=== PATIENT | male | born 1990 ===

== ENCOUNTER 2024-02-07 23:41 | Emergency (ER) | payer SELFPAY ==
[2024-02-07] MEDS ORDERED: Ketamine HCl 50 MG/ML IV ONE (23:42)
[2024-02-07] MEDS ORDERED: Zemuron 100 MG/10 ML IV ONE (23:42)
[2024-02-07] MEDS ORDERED: Sodium Chloride 0.9% 1000 ML 2,000 ML ONE (23:43)
[2024-02-07] MEDS ORDERED: FENTANYL 500 MCG/10 ML VIAL IV ONE (23:49)
[2024-02-07] MEDS ORDERED: Sodium Chloride 0.9% 150 ML 150 ML IV ONE (23:49)
[2024-02-07] MEDS ORDERED: Propofol 1000 mg/100 ml Bottle 100 ML IV ONE (23:54)
[2024-02-07] MEDS ORDERED: Sodium Chloride 0.9% 500 ML 500 ML IV ONE (23:55)
[2024-02-07] MEDS ORDERED: Sodium Chloride 0.9% 1000 ML 1,000 ML IV STA (23:57)
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
[2024-02-08 00:21] VITALS: TEMP 102.2
[2024-02-08 00:37] LABS: Absolute Neutrophil Ct (ANC) 13.67 x10^3/uL (1.4-6.9); BASOPHIL % 0.2 % (0.0-0.4); Basophil (Absolute #) 0.04 x10^3/uL (0-0.4); Eosinophil % 0.1 % (0.00-5.0); Eosinophil (Absolute #) 0.01 x10^3/uL (0-0.5); Hematocrit 47.3 % (42-50); IMMATURE GRAN # 0.08 x10^3u/L (0.00-0.03); IMMATURE GRAN % 0.5 % (0.00-0.4); Lymphocytes % 8.8 % (24.0-44.0); Mean Cell Volume 94.2 fL (78-100); Mean Corpuscular Hemoglobin 31.9 pg (26-32); Mean Corpuscular Hgb Concent. 33.8 g/dL (32-36); Mean Platelet Volume 11.1 fL (7.5-11.0); Monocyte (Absolute #) 1.77 x10^3/uL (0.0-1.3); Monocytes % 10.4 % (0.0-12.0); Platelet Count 257 x10^3/uL (150-450); Red Blood Count 5.02 x10^6/uL (4.1-5.6); Red Cell Distribution Width 14.5 % (11.5-14.0); White Blood Count 17.1 x10^3/uL (4.0-10.5)
[2024-02-08 00:53] LABS: ALKALINE PHOSPHATASE 85 U/L (38-126); ANION GAP 31.2 MEQ/L (5-15); BLOOD UREA NITROGEN 24 mg/dL (9-20); CHLORIDE 108 mmol/L (98-107); Calcium 10.3 mg/dL (8.4-10.2); EST GLOMERULAR FILTRATION RATE 35.2 ML/MIN; ETHYL ALCOHOL < 10 mg/dL (0-10); Glucose 61 mg/dL (74-106); Potassium 4.1 mmol/L (3.5-5.1); SGOT/AST 72 U/L (17-59); SGPT/ALT 82 U/L (0-50); SODIUM 144 mmol/L (135-145); Total Protein 8.6 g/dL (6.3-8.2)
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
[2024-02-08 00:57] LABS: Carbon Dioxide 9 mmol/L (22-30)
[2024-02-08 01:03] LABS: Barbiturate,Urine NEGATIVE (NEGATIVE); Benzodiazepine,Urine NEGATIVE (NEGATIVE); Cocaine,Urine NEGATIVE (NEGATIVE); Methadone,Urine NEGATIVE (NEGATIVE); Opiate,Urine NEGATIVE (NEGATIVE); PCP,Urine NEGATIVE (NEGATIVE); THC,Urine POSITIVE (NEGATIVE)
[2024-02-08 01:04] VITALS: RESP 18
[2024-02-08 01:07] VITALS: BP 147/91; PULSE 144
[2024-02-08 01:56] VITALS: O2SAT 95
[2024-02-08 02:13] LABS: ABO TYPING A
[2024-02-08 02:14] LABS: Antibody Screen NEGATIVE (NEGATIVE); RH TYPING POSITIVE
[2024-02-08 02:19] LABS: CROSS MATCH (PRBC) COMPATIBLE (COMPATIBLE)
[2024-02-08 02:52] LABS: Amphetamine,Urine POSITIVE (NEGATIVE)
== END 2024-02-08 00:42 | disposition short-term general hospital (02) ==
LOC: ED 23:41
DX: S41.042A Puncture wound with foreign body of left shoulder, initial encounter (principal); S91.042A Puncture wound with foreign body, left ankle, initial encounter; X95.9XXA Assault by unspecified firearm discharge, initial encounter
CPT/HCPCS: 31500; 36000; 36415; 36430; 71045; 80053; 80307; 82077; 85025; 86850; 86900; 86901; 86922; 94002; 99285; 99291; 99292; P9016; J2704; J3010